=== PATIENT | female | born 1950 | race Caucasian/White ===

== ENCOUNTER → 2016-06-28 | Outpatient (CLI) | payer MEDICARE | LOC: WI 09:07 | PROVIDERS: ATTEND Family Medicine | DX: Z12.31 Encounter for screening mammogram for malignant neoplasm of breast (principal) | CPT/HCPCS: 77067; G0202 ==

== ENCOUNTER → 2016-10-26 | Outpatient (CLI) | payer MEDICARE | LOC: LAB 15:46 | PROVIDERS: ATTEND Emergency Medicine | DX: N39.0 Urinary tract infection, site not specified (principal); R30.0 Dysuria | CPT/HCPCS: 87086; 87088; 87186 ==

== ENCOUNTER 2017-02-04 09:41 | Emergency (ER) | payer MEDICARE ==
[2017-02-04] MEDS ORDERED: IPRATROPIUM/ALBUTEROL 0.5-2.5 MG/3 ML AMPUL NEB ONE (10:11)
--- NOTE | 2017-02-04 10:11 | ER Document Report ---
ED Medical Screen (RME) - General Chief Complaint: Breathing Difficulty Stated Complaint: DIFFICULTY BREATHING Time Seen by Provider: 02/04/17 10:03 Mode of Arrival: Wheelchair Information source: Patient Notes: 67-year-old female history of COPD presents with complaints of fevers chills body aches and shortness of breath. Patient noted to be slightly tachycardic upon arrival notes symptoms started this morning I have greeted and performed a rapid initial assessment of this patient. A comprehensive ED assessment and evaluation of the patient, analysis of test results and completion of the medical decision making process will be conducted by additional ED providers. PHYSICAL EXAMINATION: GENERAL: Well-appearing, well-nourished and in no acute distress. HEAD: Atraumatic, normocephalic. EYES: Pupils equal round extraocular movements intact, conjunctiva are normal. ENT: Nares patent NECK: Normal range of motion LUNGS: No respiratory distress Musculoskeletal: Normal range of motion NEUROLOGICAL: Normal speech, normal gait. PSYCH: Normal mood, normal affect. SKIN: Warm, Dry, normal turgor, no rashes or lesions noted. TRAVEL OUTSIDE OF THE [place] IN LAST 30 DAYS: No - Related Data Allergies/Adverse Reactions: diclofenac potassium [From Cataflam] Allergy (Verified 02/04/17 09:42) gabapentin [From Neurontin] Allergy (Verified 02/04/17 09:42) meloxicam [Meloxicam] Allergy (Verified 02/04/17 09:42) nitrofurantoin [From Macrobid] Allergy (Verified 02/04/17 09:42) nitrofurantoin macrocrystalline [From Macrobid] Allergy (Verified 02/04/17 09:42 ) Sulfa (Sulfonamide Antibiotics) Allergy (Verified 02/04/17 09:42) Home Medications: Current Home Medications Alprazolam [Xanax] 4 mg PO HSP 02/04/17 [History] Bisoprolol/Hydrochlorothiazide [Ziac 2.5-6.25 mg Tablet] 1 tab PO DAILY [History] Past Medical History - Social History Frequency of alcohol use: None Drug Abuse: Marijuana - Past Medical History Cardiac Medical History: Reports: Hx Hypercholesterolemia, Hx Hypertension Denies: Hx Coronary Artery Disease, Hx Heart Attack Pulmonary Medical History: Reports: Hx Asthma - MILD, Hx COPD Denies: Hx Bronchitis, Hx Pneumonia Neurological Medical History: Reports: Hx Migraine. Denies: Hx Cerebrovascular Accident, Hx Seizures Endocrine Medical History: Reports: Hx Diabetes Mellitus Type 1 Renal/ Medical History: Denies: Hx Peritoneal Dialysis GI Medical History: Reports: Hx Gastroesophageal Reflux Disease Musculoskeltal Medical History: Reports Hx Arthritis - GENERALIZED Psychiatric Medical History: Reports: Hx Anxiety Past Surgical History: Reports: Hx Cholecystectomy - Immunizations Hx Diphtheria, Pertussis, Tetanus Vaccination: - UNKNOWN History of Influenza Vaccine for 11/2016 - 04/2017 Season: Yes Influenza Administration Date for 11/2016 - 04/2017 Season: 01/10/17 Physical Exam - Vital signs Vitals: Temp Pulse Resp BP Pulse Ox 99.5 F 112 H 18 138/71 H 94 02/04/17 09:46 02/04/17 09:46 02/04/17 09:46 02/04/17 09:46 02/04/17 09:46 Course - Vital Signs Vital signs: Temp Pulse Resp BP Pulse Ox 99.5 F 112 H 18 138/71 H 94 02/04/17 09:46 02/04/17 09:46 02/04/17 09:46 02/04/17 09:46 02/04/17 09:46
--- NOTE | 2017-02-04 10:56 | EKG REPORT ---
SEVERITY:- OTHERWISE NORMAL ECG - SINUS TACHYCARDIA : Confirmed by: Courtney Rosas MD 04-Feb-2017 10:56:05
[2017-02-04 11:01] LABS: APPEARANCE,URINE CLEAR; BILIRUBIN,URINE NEGATIVE (NEGATIVE); GLUCOSE, URINE NEGATIVE (NEGATIVE); KETONES,URINE NEGATIVE (NEGATIVE); LEUKOCYTE ESTERASE,URINE NEGATIVE (NEGATIVE); NITRITE,URINE NEGATIVE (NEGATIVE); PROTEIN,URINE NEGATIVE (NEGATIVE); URINE SPECIFIC GRAVITY 1.002; UROBILINOGEN,URINE NEGATIVE mg/dL (<2.0)
--- NOTE | 2017-02-04 11:04 | ER Document Report ---
ED Respiratory Problem - General Chief Complaint: Breathing Difficulty Stated Complaint: DIFFICULTY BREATHING Time Seen by Provider: 02/04/17 10:03 Mode of Arrival: Wheelchair Information source: Patient Notes: 67-year-old female with a history of COPD has been fighting upper respiratory cough and mucus for almost a week. This morning she woke up with a fever that went up to 102.8. No chest pain or shortness of breath. No dysuria frequency or urgency. She complains of minimal right to midline abdominal pain. No nausea vomiting or diarrhea. No rash. She got a flu shot 3 weeks ago. TRAVEL OUTSIDE OF THE [place] IN LAST 30 DAYS: No - Related Data Allergies/Adverse Reactions: diclofenac potassium [From Cataflam] Allergy (Verified 02/04/17 09:42) gabapentin [From Neurontin] Allergy (Verified 02/04/17 09:42) meloxicam [Meloxicam] Allergy (Verified 02/04/17 09:42) nitrofurantoin [From Macrobid] Allergy (Verified 02/04/17 09:42) nitrofurantoin macrocrystalline [From Macrobid] Allergy (Verified 02/04/17 09:42 ) Sulfa (Sulfonamide Antibiotics) Allergy (Verified 02/04/17 09:42) Home Medications: Current Home Medications Alprazolam [Xanax] 4 mg PO HSP 02/04/17 [History] Bisoprolol/Hydrochlorothiazide [Ziac 2.5-6.25 mg Tablet] 1 tab PO DAILY [History] Past Medical History - General Information source: Patient - Social History Smoking Status: Former Smoker Frequency of alcohol use: None Drug Abuse: Marijuana Lives with: Spouse/Significant other Family History: Reviewed & Not Pertinent Patient has suicidal ideation: No Patient has homicidal ideation: No - Past Medical History Cardiac Medical History: Reports: Hx Hypercholesterolemia, Hx Hypertension Pulmonary Medical History: Reports: Hx Asthma - MILD, Hx COPD Neurological Medical History: Reports: Hx Migraine Endocrine Medical History: Reports: Hx Diabetes Mellitus Type 1 Renal/ Medical History: Denies: Hx Peritoneal Dialysis GI Medical History: Reports: Hx Gastroesophageal Reflux Disease Musculoskeltal Medical History: Reports Hx Arthritis - GENERALIZED Psychiatric Medical History: Reports: Hx Anxiety Past Surgical History: Reports: Hx Cholecystectomy - Immunizations Hx Diphtheria, Pertussis, Tetanus Vaccination: - UNKNOWN Review of Systems - Review of Systems Constitutional: See HPI EENT: See HPI Cardiovascular: No symptoms reported Respiratory: See HPI Gastrointestinal: No symptoms reported Genitourinary: No symptoms reported Female Genitourinary: No symptoms reported Musculoskeletal: No symptoms reported Skin: No symptoms reported Hematologic/Lymphatic: No symptoms reported Neurological/Psychological: No symptoms reported Physical Exam - Vital signs Vitals: Temp Pulse Resp BP Pulse Ox 99.5 F 112 H 18 138/71 H 94 02/04/17 09:46 02/04/17 09:46 02/04/17 09:46 02/04/17 09:46 02/04/17 09:46 Interpretation: Normal - General General appearance: Appears well, Alert In distress: None - HEENT Head: Normocephalic, Atraumatic Eyes: Normal Conjunctiva: Normal Pupils: PERRL Ears: Normal Nasal: Normal Mouth/Lips: Normal Mucous membranes: Normal Pharynx: Normal Neck: Supple. No: Lymphadenopathy - Respiratory Respiratory status: No respiratory distress Chest status: Nontender Breath sounds: Normal Chest palpation: Normal - Cardiovascular Rhythm: Regular Heart sounds: Normal auscultation Murmur: No - Abdominal Inspection: Normal Distension: No distension Bowel sounds: Normal Tenderness: Nontender. No: Tender Organomegaly: No organomegaly - Back Back: Normal, Nontender. No: CVA tenderness - Extremities General upper extremity: Normal inspection, Nontender, Normal color, Normal ROM , Normal temperature General lower extremity: Normal inspection, Nontender, Normal color, Normal ROM , Normal temperature, Normal weight bearing. No: Ina's sign - Neurological Neuro grossly intact: Yes Cognition: Normal Orientation: AAOx4 Evelyne Coma Scale Eye Opening: Spontaneous Evelyne Coma Scale Verbal: Oriented Evelyne Coma Scale Motor: Obeys Commands [place] Coma Scale Total: 15 Speech: Normal Motor strength normal: LUE, RUE, LLE, RLE Sensory: Normal - Psychological Associated symptoms: Normal affect, Normal mood - Skin Skin Temperature: Warm Skin Moisture: Dry Skin Color: Normal Skin irregularity: negative: Rash Course - Re-evaluation Re-evalutation: 02/04/17 11:18 3+ bacteria in the urine but only 1 WBC I added a urine culture which is pending. 02/04/17 12:28 chest xray negative, pt asking for xanax 2mg (that she usually takes) and food. 02/04/17 13:01 cbc finally redrawn and reported, white count 18.1 with 84% neutrophils 02/04/17 13:13 mild tender right lower quadrant, no guarding or rebound. 02/04/17 13:17 consult derik blancas get iv ct abd/pelvis 02/04/17 15:[address] there is a patchy right lower lobe airspace disease compatible with infectious or inflammatory pneumonitis I will treat her with antibiotics have her follow-up with Dr. Mcnulty or return to the emergency room if worse. She is aware of the renal cyst it was there in the past. - Vital Signs Vital signs: Temp Pulse Resp BP Pulse Ox 97.4 F 81 18 125/66 99 02/04/17 16:46 02/04/17 16:46 02/04/17 16:46 02/04/17 16:46 02/04/17 16:46 - Laboratory Result Diagrams: 02/04/17 12:25 02/04/17 10:55 Laboratory results interpreted by me: 02/04/17 02/04/17 10:55 12:25 WBC 18.8 H Seg Neutrophils % 85.9 H Lymphocytes % 8.0 L Absolute Neutrophils 16.1 H Est GFR ( Amer) 54 L Est GFR (Non-Af Amer) 45 L Glucose 115 H Creatine Kinase 171 H Discharge - Discharge Clinical Impression: Right lower lobe pneumonia, Fever, ASB (asymptomatic bacteriuria) Condition: Good Disposition: HOME, SELF-CARE Instructions: Abdominal Pain ([facility]), Acetaminophen, Levofloxacin, Pneumonia ([facility] ) Additional Instructions: to er if worse Finish the antibiotics rest see dr mcnulty this week for follow up Prescriptions: Levofloxacin 750 mg PO DAILY #5 tablet Referrals: GEM MCNULTY MD [HONORARY] - 02/06/17
--- NOTE | 2017-02-04 11:06 | RADIOLOGY REPORT (SQ) ---
EXAM DESCRIPTION: CHEST SINGLE VIEW COMPLETED DATE/TIME: 02/04/2017 10:56 am REASON FOR STUDY: dyspnea COMPARISON: 05/16/2015 EXAM PARAMETERS: NUMBER OF VIEWS: One view. TECHNIQUE: Single frontal radiographic view of the chest acquired. RADIATION DOSE: NA LIMITATIONS: None. FINDINGS: LUNGS AND PLEURA: No opacities, masses or pneumothorax. No pleural effusion. MEDIASTINUM AND HILAR STRUCTURES: No masses. Contour normal. HEART AND VASCULAR STRUCTURES: Heart normal in size. Normal vasculature. BONES: No acute findings. HARDWARE: None in the chest. OTHER: No other significant finding. IMPRESSION: NO ACUTE RADIOGRAPHIC FINDING IN THE CHEST. NO SIGNIFICANT CHANGE FROM PRIOR STUDY. TECHNICAL DOCUMENTATION: JOB ID: [id number] [employer]- All Rights Reserved
[2017-02-04 11:22] LABS: ALANINE AMINOTRANSFERASE 38 U/L (9-52); ALBUMIN 4.3 g/dL (3.5-5.0); ALKALINE PHOSPHATASE 96 U/L (38-126); ANION GAP 12 (5-19); ASPARTATE AMINO TRANSFERASE 35 U/L (14-36); BILIRUBIN,DIRECT 0.3 mg/dL (0.0-0.4); BILIRUBIN,TOTAL 0.7 mg/dL (0.2-1.3); BLOOD UREA NITROGEN 20 mg/dL (7-20); CALCIUM 9.7 mg/dL (8.4-10.2); CARBON DIOXIDE 28 mmol/L (22-30); CHLORIDE 101 mmol/L (98-107); CREATINE KINASE 171 U/L (30-135); CREATININE RESULT 1.21 mg/dL (0.52-1.25); GLUCOSE 115 mg/dL (75-110); POTASSIUM 4.6 mmol/L (3.6-5.0); SODIUM 141.3 mmol/L (137-145); TOTAL PROTEIN 7.8 g/dL (6.3-8.2)
[2017-02-04 11:34] LABS: TROPONIN I 0.015 ng/mL
[2017-02-04] MEDS ORDERED: ALPRAZOLAM 0.5 MG TABLET PO ONE (12:25)
[2017-02-04 12:45] LABS: ABSOLUTE BASOPHILS # (AUTO) 0.1 10^3/uL (0.0-0.2); ABSOLUTE LYMPHOCYTES (AUTO) 1.5 10^3/uL (0.5-4.7); ABSOLUTE MONOCYTES (AUTO) 1.1 10^3/uL (0.1-1.4); ABSOLUTE NEUT (AUTO) 16.1 10^3/uL (1.7-8.2); BASOPHILS % (AUTO) 0.3 % (0-2); EOSINOPHILS % (AUTO) 0.1 % (0-6); HEMATOCRIT 39.2 % (36.0-47.0); HEMOGLOBIN 13.2 g/dL (12.0-15.5); HGB HCT DIFFERENCE 0.4; MEAN CORPUSCULAR HEMOGLOBIN 30.4 pg (27.0-33.4); MEAN CORPUSCULAR HGB CONC 33.6 g/dL (32.0-36.0); MEAN CORPUSCULAR VOLUME 90 fl (80-97); MONOCYTES % (AUTO) 5.7 % (3-13); RED BLOOD COUNT 4.34 10^6/uL (3.72-5.28); RED CELL DISTRIBUTION WIDTH 13.7 % (11.5-14.0); SEGMENTED NEUTROPHILS % (AUTO) 85.9 % (42-78); WHITE BLOOD COUNT 18.8 10^3/uL (4.0-10.5)
--- NOTE | 2017-02-04 15:08 | RADIOLOGY REPORT (SQ) ---
EXAM DESCRIPTION: CT ABD/PELVIS WITH IV ONLY COMPLETED DATE/TIME: 02/04/2017 2:53 pm REASON FOR STUDY: fever, right middle quadrant tender COMPARISON: None. TECHNIQUE: CT scan of the abdomen and pelvis performed using helical scanning technique with dynamic intravenous contrast injection. No oral contrast. Images reviewed with lung, soft tissue, and bone windows. Reconstructed coronal and sagittal MPR images reviewed. Delayed images for evaluation of the urinary system also acquired. All images stored on PACS. All CT scanners at this facility use dose modulation, iterative reconstruction, and/or weight based d osing when appropriate to reduce radiation dose to as low as reasonably achievable (ALARA). [facility]: Dose Right [facility]: CareDose [facility]: Dose Right [facility]: Teradose 4D [facility]: skyrockit CONTRAST TYPE AND DOSE: contrast/concentration: Isovue 370.00 mg/ml; Total Contrast Delivered: 92.0 ml; Total Saline Delivered: 65.1 ml RENAL FUNCTION: Creatinine measures 1.21 RADIATION DOSE: CT Rad equipment meets quality standard of care and radiation dose reduction techniq ues were employed. CTDIvol: 11.3 - 14.6 mGy. DLP: 1378 mGy-cm.. LIMITATIONS: None. FINDINGS: LOWER CHEST: Patchy right lower lobe airspace disease. LIVER: Normal size. No masses. Mild intra and extrahepatic biliary ductal dilatation with the common bile duct measuring 10 mm. SPLEEN: Normal size. No focal lesions. PANCREAS: No masses. No significant calcifications. No adjacent inflammation or peripancreatic fluid collections. Pancreatic duct not dilated. GALLBLADDER: Surgically absent. ADRENAL GLANDS: No significant masses or asymmetry. RIGHT KIDNEY AND URETER: 2.2 cm renal sinus cyst. No solid masses. No significant calcifications. No hydronephrosis or hydroureter. LEFT KIDNEY AND URETER: No solid masses. No significant calcifications. No hydronephrosis or hydr oureter. AORTA AND VESSELS: Atherosclerotic calcifications per No aneurysm. No dissection. Renal arteries, SM A, celiac without stenosis. RETROPERITONEUM: No retroperitoneal adenopathy, hemorrhage or masses. BOWEL AND PERITONEAL CAVITY: No masses or inflammatory changes. No free fluid or peritoneal masses. APPENDIX: Normal. PELVIS: No mass. No free fluid. Normal bladder. ABDOMINAL WALL: No masses. No hernias. BONES: Degenerative change without fracture or suspicious osseous lesion. OTHER: No other significant finding. IMPRESSION: PATCHY RIGHT LOWER LOBE AIRSPACE DISEASE COMPATIBLE WITH INFECTIOUS OR INFLAMMATORY PNEU MONITIS. NO ACUTE INFLAMMATORY CHANGE IDENTIFIED WITHIN THE ABDOMEN OR PELVIS. THERE IS MILD BILIARY DUCT DILATATION PRESUMABLY WITHIN NORMAL LIMITS FOR POST CHOLECYSTECTOMY STATUS . CORRELATE WITH BILIARY ENZYMES. ADDITIONAL CHRONIC CHANGES ABOVE. TECHNICAL DOCUMENTATION: JOB ID: [id number] Quality ID # [id number]: Final reports with documentation of one or more dose reduction techniques (e.g., Au tomated exposure control, adjustment of the mA and/or kV according to patient size, use of iterative reconstruction technique) 2010 [employer]- All Rights Reserved
[2017-02-04] MEDS ORDERED: LEVOFLOXACIN 750 MG TABLET PO ONE (15:46)
[2017-02-04 16:48] VITALS: BP 125/66
== END 2017-02-04 16:49 | disposition home or self-care (01) ==
LOC: ER 09:41
DX: J44.0 Chronic obstructive pulmonary disease with (acute) lower respiratory infection (principal); J18.9 Pneumonia, unspecified organism; R82.71 Bacteriuria; R05 Cough; R50.9 Fever, unspecified; R10.9 Unspecified abdominal pain; I10 Essential (primary) hypertension; E10.9 Type 1 diabetes mellitus without complications; Z88.6 Allergy status to analgesic agent; Z88.1 Allergy status to other antibiotic agents; Z88.2 Allergy status to sulfonamides; Z88.8 Allergy status to other drugs, medicaments and biological substances; Z87.891 Personal history of nicotine dependence; Z90.49 Acquired absence of other specified parts of digestive tract
CPT/HCPCS: 93005; 94640; 99285; 36415; 87040; 87086; 82553; 82550; 85025; 80053; 81001; 84484; 83880; 71010; 74177; 93010; A9270 ×3; J7620

== ENCOUNTER 2017-02-28 05:33 | Day surgery (SDC) | payer MEDICARE ==
[2017-02-26 12:20] LABS: APPEARANCE,URINE CLEAR; BILIRUBIN,URINE NEGATIVE (NEGATIVE); COLOR,URINE COLORLESS; GLUCOSE, URINE NEGATIVE (NEGATIVE); KETONES,URINE NEGATIVE (NEGATIVE); LEUKOCYTE ESTERASE,URINE NEGATIVE (NEGATIVE); NITRITE,URINE NEGATIVE (NEGATIVE); PROTEIN,URINE NEGATIVE (NEGATIVE); URINE SPECIFIC GRAVITY 1.002; UROBILINOGEN,URINE NEGATIVE mg/dL (<2.0)
[2017-02-26 12:53] LABS: HEMATOCRIT 39.1 % (36.0-47.0); HEMOGLOBIN 13.1 g/dL (12.0-15.5); MEAN CORPUSCULAR HEMOGLOBIN 30.4 pg (27.0-33.4); MEAN CORPUSCULAR HGB CONC 33.5 g/dL (32.0-36.0); MEAN CORPUSCULAR VOLUME 91 fl (80-97); PLATELET COUNT 329 10^3/uL (150-450); RED CELL DISTRIBUTION WIDTH 13.7 % (11.5-14.0); WHITE BLOOD COUNT 11.1 10^3/uL (4.0-10.5)
[2017-02-26 13:17] LABS: ANION GAP 9 (5-19); BLOOD UREA NITROGEN 15 mg/dL (7-20); CALCIUM 9.9 mg/dL (8.4-10.2); CARBON DIOXIDE 30 mmol/L (22-30); CHLORIDE 101 mmol/L (98-107); GLUCOSE 96 mg/dL (75-110); POTASSIUM 4.8 mmol/L (3.6-5.0); SODIUM 140.1 mmol/L (137-145)
--- NOTE | 2017-02-26 13:58 | RADIOLOGY REPORT (SQ) ---
EXAM DESCRIPTION: CHEST PA/LATERAL COMPLETED DATE/TIME: 02/26/2017 12:34 pm REASON FOR STUDY: PRE OP COMPARISON: 02/04/2017, 05/16/2015 chest films EXAM PARAMETERS: NUMBER OF VIEWS: two views TECHNIQUE: Digital Frontal and Lateral radiographic views of the chest acquired. RADIATION DOSE: NA LIMITATIONS: none FINDINGS: LUNGS AND PLEURA: No opacities, masses or pneumothorax. No pleural effusion. MEDIASTINUM AND HILAR STRUCTURES: No masses or contour abnormalities. HEART AND VASCULAR STRUCTURES: Heart normal size. No evidence for failure. BONES: No acute findings. HARDWARE: Clips right upper quadrant post cholecystectomy OTHER: No other significant finding. IMPRESSION: NO SIGNIFICANT RADIOGRAPHIC FINDING IN THE CHEST. TECHNICAL DOCUMENTATION: JOB ID: [id number] [employer]- All Rights Reserved
--- NOTE | 2017-02-26 23:15 | EKG REPORT ---
SEVERITY:- NORMAL ECG - SINUS RHYTHM : Confirmed by: Olya Zamora 26-Feb-2017 23:14:51
[~2017-02-28 05:33] MED LIST: CEFAZOLIN 1 GM/D5W RTU 1 GM/50 ML RTUPB IV PRN; LACTATED RINGERS 1000 ML IV PRN; LIDOCAINE 0.5% INJ-PF (5 MG/ML) 50 ML SDV SUBCUT PRN
[2017-02-28] MEDS ORDERED: ALBUTEROL SULFATE 0.083% NEB 2.5 MG/3 ML AMPUL NEB ONE ×2 (06:20→07:00)
[2017-02-28] MEDS ORDERED: FENTANYL CITRATE INJ/PF 100 MCG/2 ML AMPUL ONE (06:42)
[2017-02-28] MEDS ORDERED: MIDAZOLAM 2 MG/2 ML INJ ONE ×2 (06:42→06:43)
[2017-02-28] MEDS ORDERED: PROPOFOL INJ 200 MG/20 ML VIAL IV ONE (06:43)
[2017-02-28] MEDS ORDERED: LIDOCAINE 1%/EPINEPHRINE INJ 20 ML VIAL ONE (07:03)
[2017-02-28] MEDS ORDERED: KETAMINE HCL INJ 500 MG/10 ML VIAL ONE (07:31)
[2017-02-28] MEDS ORDERED: PROMETHAZINE HCL INJ 25 MG/1 ML VIAL IV PRN (07:54)
[2017-02-28] MEDS ORDERED: DIPHENHYDRAMINE HCL 50 MG/ML VIAL IV PRN (07:54)
[2017-02-28] MEDS ORDERED: FENTANYL CITRATE INJ/PF 100 MCG/2 ML AMPUL IV PRN ×3 (07:54)
--- NOTE | 2017-02-28 09:34 | OPERATIVE REPORT E ---
Operative Report NAME: SIMOEN WALLIS : 1950 AGE: 67Y DATE OF SURGERY: 02/28/2017 ROOM: PREOPERATIVE DIAGNOSIS: MODERATE DYSPLASIA/HIGH-GRADE ALYSSA. POSTOPERATIVE DIAGNOSIS: MODERATE DYSPLASIA/HIGH-GRADE ALYSSA. OPERATION: 1. Cold knife conization. 2. Endocervical curettage. 3. Endometrial biopsy. SURGEON: ELMER BORDEN M.D. COMPLICATIONS: None. ANESTHESIA: LMAC, paracervical block of 1% lidocaine with epinephrine. FINDINGS: That of a normal cervix and pelvis on EUA. Bladder was left undrained. INDICATIONS FOR PROCEDURE: Patient had abnormal Pap smear as an outpatient. High grade lesions requiring a cone. Due to multiple medical morbidities, patient has been brought to the hospital for the procedure versus outpatient. Usual risks of bleeding, infection, anesthesia, damage to organs or tissue were discussed and the patient understood. DESCRIPTION OF PROCEDURE: The patient was taken to the operating room and placed in the modified lithotomy position. After adequate anesthesia ascertained, prepped in the usual manner for a cold knife conization. Paracervical block was placed. EUA performed. Surgeon-led time out performed. The conization ensued inclusive of the lower portion of the cervix and extended into the cervix for approximately a centimeter. Endocervical biopsies were performed thereafter and endometrial biopsy was performed thereafter. Uterus sounded to approximately 4 cm. At completion of procedure, the bed of the cone was cauterized and hemostasis was noted. Patient was awakened and taken to recovery in stable condition. DICTATING PHYSICIAN: ELMER BORDEN M.D. [id number] Y#: [id number] ID: [id number] JOB#: [id number] ACCT: [id number] cc:ELMER BORDEN M.D. >
[2017-02-28 10:22] VITALS: BP 129/78
[2017-02-28] MEDS ORDERED: LIDOCAINE 2% INJ-PF (20 MG/ML) 2 ML AMPUL ONE (10:31)
== END 2017-02-28 09:55 | disposition home or self-care (01) ==
LOC: OROUT 05:33
PROVIDERS: ATTEND Specialist
PROC: 0UBC7ZX Excision of Cervix, Via Natural or Artificial Opening, Diagnostic (ICD-10-PCS; principal; 2017-02-28 07:15)
DX: N87.1 Moderate cervical dysplasia (principal); N88.8 Other specified noninflammatory disorders of cervix uteri; N72 Inflammatory disease of cervix uteri; I10 Essential (primary) hypertension; E11.9 Type 2 diabetes mellitus without complications; M19.90 Unspecified osteoarthritis, unspecified site; J44.9 Chronic obstructive pulmonary disease, unspecified; M06.9 Rheumatoid arthritis, unspecified; M81.0 Age-related osteoporosis without current pathological fracture; M85.80 Other specified disorders of bone density and structure, unspecified site; Z88.3 Allergy status to other anti-infective agents; Z88.8 Allergy status to other drugs, medicaments and biological substances
CPT/HCPCS: 93005; 86900; 86901; 36415 ×2; 86850; 82962; 84132; 85027; 80048; 81001; 88305 ×2; 88307 ×2; 71046; 93010; 57520; J2250; J0690; J3010; J3490 ×3; J2704; A9270; 940

== ENCOUNTER → 2017-04-03 | Outpatient (CLI) | payer MEDICARE ==
--- NOTE | 2017-04-03 12:46 | RADIOLOGY REPORT (SQ) ---
EXAM DESCRIPTION: HIP RIGHT AP/LATERAL COMPLETED DATE/TIME: 04/03/2017 10:28 am REASON FOR STUDY: M25.551 PAIN IN RIGHT HIP R10.2 PELVIC AND PERINEAL PAIN M25.551 PAIN IN RIGHT HI P R10.2 PELVIC AND PERINEAL PAIN COMPARISON: None. NUMBER OF VIEWS: Two views. TECHNIQUE: AP pelvis and additional frog-leg view of the right hip. LIMITATIONS: None. FINDINGS: MINERALIZATION: Normal. RIGHT HIP: Mild to moderate degenerative narrowing of the right hip with associated degenerative scle rotic change. Femoral head normal in contour. LEFT HIP: No fracture or dislocation. No worrisome bone lesions. PUBIS AND ISCHIUM: No fracture. PELVIS: No fracture. SACRUM: No fracture or dislocation. No worrisome bone lesions. LOWER LUMBAR SPINE: Degenerative changes lower lumbar spine SOFT TISSUES: No findings. OTHER: No other significant finding. IMPRESSION: Mild to moderate osteoarthritic change involving the right hip. See above discussion. TECHNICAL DOCUMENTATION: JOB ID: [id number] [employer]- All Rights Reserved
== END ==
LOC: RAD 09:55
PROVIDERS: ATTEND Family Medicine
DX: M25.551 Pain in right hip (principal); R10.2 Pelvic and perineal pain

== ENCOUNTER → 2017-06-30 | Outpatient (CLI) | payer MEDICARE ==
--- NOTE | 2017-07-01 12:32 | WOMENS IMAGING REPORT ---
EXAM DESCRIPTION: 3D SCREENING MAMMO BILAT COMPLETED DATE/TIME: 06/30/2017 9:42 am REASON FOR STUDY: SCREENING MAMMO Z12.31 ENCNTR SCREEN MAMMOGRAM FOR MALIGNANT NEOPLASM OF CARIE COMPARISON: Multiple since 2008 TECHNIQUE: Standard craniocaudal and mediolateral oblique views of each breast recorded using digita l acquisition and breast tomosynthesis. LIMITATIONS: None. FINDINGS: No masses, calcifications or architectural distortion. No areas of suspicion. Read with the assistance of CAD. .[facility] - R2 Cenova Version 1.3 .[facility] - R2 Cenova Version 1.3 .[facility] - R2 Cenova Version 2.4 .[facility] - R2 Cenova Version 2.4 .[facility] - R2 [employer] Version 9.2 IMPRESSION: NORMAL MAMMOGRAM. BIRADS 1. BREAST DENSITY: b. There are scattered areas of fibroglandular density. BIRAD: 1 NEGATIVE RECOMMENDATION: ROUTINE SCREENING Please continue yearly bilateral screening mammography/tomosynthesis in June 2018. COMMENT: The patient has been notified of the results by letter per SA requirements. Additional no tification policies are in place for contacting patient with suspicious or incomplete findings. Quality ID #[id number]: The [employer] recommends an annual screening mammogram for women aged 40 years or over. This facility utilizes a reminder system to ensure that all patients receive reminder letters, and/or direct phone calls for appointments. This includes reminders for routine scr eening mammograms, diagnostic mammograms, or other Breast Imaging Interventions when appropriate. Th is patient will be placed in the appropriate reminder system. The [employer] (ACR) has developed recommendations for screening MRI of the breast s in certain patient populations, to be used in conjunction with mammography. Breast MRI surveillanc e may be appropriate for women with more than 20% lifetime risk of developing breast cancer as deter mined by genetic testing, significant family history of the disease, or history of mantle radiation f or Hodgkins Disease. ACR Practice Guidelines 2008. DBT Technology DBT is a type of tomographic mammography. With conventional mammography, overlapping breast tissue ma y make lesions difficult to detect, even with good compression. DBT uses an x-ray tube that rotates a round the breast, taking images at different angles. These images are then combined to create thin sl ices of the breast that the radiologist can view as a 3D reconstruction. The [employer] unit can perform full-field digital mammograms (2D imaging); or DBT (3D imaging); or both, in a combination mode that quickly performs both the mammogram and the tomosynthesis scan while the breast is still compressed. PQRS 6045F: Fluoroscopic imaging is not utilized for breast tomosynthesis. TECHNICAL DOCUMENTATION: FINDING NUMBER: (1) ASSESSMENT: (1) JOB ID: [id number] [employer]- All Rights Reserved Reading location - IP/workstation name: [facility]
== END ==
LOC: WI 09:27
PROVIDERS: ATTEND Family Medicine
DX: Z12.31 Encounter for screening mammogram for malignant neoplasm of breast (principal)
CPT/HCPCS: 77063; 77067

== ENCOUNTER → 2018-02-12 | Outpatient (CLI) | payer MEDICARE ==
--- NOTE | 2018-02-12 12:54 | RADIOLOGY REPORT (SQ) ---
EXAM DESCRIPTION: HIP RIGHT AP/LATERAL COMPLETED DATE/TIME: 02/12/2018 11:55 am REASON FOR STUDY: LUMBAGO WITH SCIATICA, RIGHT SIDE M54.41 LUMBAGO WITH SCIATICA, RIGHT SIDE M25.55 1 PAIN IN RIGHT HIP COMPARISON: None. NUMBER OF VIEWS: Two views. TECHNIQUE: AP pelvis and additional frog-leg view of the right hip. LIMITATIONS: None. FINDINGS: MINERALIZATION: Normal. RIGHT HIP: No fracture or dislocation. Narrowing of the joint space. Marginal osteophytes on the fe moral head. LEFT HIP: No fracture or dislocation. No worrisome bone lesions. PUBIS AND ISCHIUM: No fracture. PELVIS: No fracture. SACRUM: No fracture or dislocation. No worrisome bone lesions. LOWER LUMBAR SPINE: No fracture or dislocation. No worrisome bone lesions. No significant disc disea se. SOFT TISSUES: No findings. OTHER: No other significant finding. IMPRESSION: Degenerative joint disease in the right hip. No acute findings. TECHNICAL DOCUMENTATION: JOB ID: [id number] [email or web address]- All Rights Reserved Reading location - IP/workstation name: [email or web address]
--- NOTE | 2018-02-12 13:28 | RADIOLOGY REPORT (SQ) ---
EXAM DESCRIPTION: L SPINE WHOLE COMPLETED DATE/TIME: 02/12/2018 11:55 am REASON FOR STUDY: LUMBAGO WITH SCIATICA, RIGHT SIDE M54.41 LUMBAGO WITH SCIATICA, RIGHT SIDE M25.55 1 PAIN IN RIGHT HIP COMPARISON: None. NUMBER OF VIEWS: Five views including obliques. TECHNIQUE: AP, lateral, oblique, and sacral radiographic images acquired of the lumbar spine. LIMITATIONS: None. FINDINGS: MINERALIZATION: Normal. SEGMENTATION: Normal. No transitional anatomy. ALIGNMENT: Normal. VERTEBRAE: Maintained height. No fracture or worrisome bone lesion. DISCS: Preserved height. No significant osteophytes or end plate irregularity. POSTERIOR ELEMENTS: Pedicles and facets are intact. No pars defect or posterior arch defects. HARDWARE: None in the spine. PARASPINAL SOFT TISSUES: Normal. PELVIS: Intact as visualized. No fractures or worrisome bone lesions. SI joints intact. OTHER: No other significant finding. IMPRESSION: NORMAL 5 VIEW LUMBAR SPINE. TECHNICAL DOCUMENTATION: JOB ID: [id number] [employer]- All Rights Reserved Reading location - IP/workstation name: [email or web address]
== END ==
LOC: RAD 11:20
PROVIDERS: ATTEND Family Medicine
DX: M54.41 Lumbago with sciatica, right side (principal); M25.551 Pain in right hip
CPT/HCPCS: 72110

== ENCOUNTER 2018-03-09 11:07 | Emergency (ER) | payer MEDICARE ==
[2018-03-09 11:33] VITALS: BP 150/69
--- NOTE | 2018-03-09 13:52 | ER Document Report ---
HPI - HPI Patient complains to provider of: right lower back, leg pain Time Seen by Provider: 03/09/18 13:47 Pain Level: 5 Context: Patient is a 68-year-old female presents to the emergency department for right paraspinal back pain radiating into her right buttocks and down her right lower extremity. Patient states she was to her primary care doctor Dr. Cody on 02/12/2018 for this pain. States at that time he sent her for x-rays and told her to take [id number] Motrin. Patient states she was at an urgent care today for her Right side lower back pain radiating down her right lower extremity and they told her she needed an MRI and had to go to the emergency room. Patient is requesting an MRI at this time. Patient denies any urinary retention, loss of bowel or bladder, numbness or tingling in any extremity. Past medical history: Hypertension, GERD, COPD, diabetes, spinal stenosis Medications: Patient is unsure Allergies: Gabapentin, meloxicam, Bactrim - REPRODUCTIVE Reproductive: DENIES: : - DERM Skin Color: Normal Past Medical History - General Information source: Patient - Social History Smoking Status: Former Smoker Chew tobacco use (# tins/day): No Frequency of alcohol use: None Drug Abuse: None Family History: Reviewed & Not Pertinent Patient has suicidal ideation: No Patient has homicidal ideation: No - Past Medical History Cardiac Medical History: Reports: Hx Atrial Fibrillation, Hx Hypercholesterolemia, Hx Hypertension Denies: Hx Coronary Artery Disease, Hx Heart Attack Pulmonary Medical History: Reports: Hx Asthma - MILD, Hx COPD, Hx Pneumonia - RECENTLY ON 02/04/17 Denies: Hx Bronchitis Neurological Medical History: Reports: Hx Migraine. Denies: Hx Cerebrovascular Accident, Hx Seizures Endocrine Medical History: Reports: Hx Diabetes Mellitus Type 1 Renal/ Medical History: Denies: Hx Peritoneal Dialysis GI Medical History: Reports: Hx Gastroesophageal Reflux Disease Musculoskeletal Medical History: Reports Hx Arthritis - GENERALIZED Psychiatric Medical History: Reports: Hx Anxiety Past Surgical History: Reports: Hx Cholecystectomy - Immunizations Hx Diphtheria, Pertussis, Tetanus Vaccination: - UNKNOWN Hx Pneumococcal Vaccination: 02/10/17 Vertical Provider Document - CONSTITUTIONAL Agree With Documented VS: Yes Notes: GENERAL: Alert, interacts well. No acute distress. HEAD: Normocephalic, atraumatic. EYES: Pupils equal, round, and reactive to light. Extraocular movements intact. ENT: Oral mucosa moist, tongue midline. NECK: Full range of motion. Supple. Trachea midline. LUNGS: Clear to auscultation bilaterally, no wheezes, rales, or rhonchi. No respiratory distress. HEART: Regular rate and rhythm. No murmur ABDOMEN: Soft, non-tender. Non-distended. Bowel sounds present in all 4 quadrants. EXTREMITIES: Moves all 4 extremities spontaneously. No edema, normal radial and dorsalis pedis pulses bilaterally. No cyanosis. 5 out of 5 strength all 4 extremities. BACK: no cervical, thoracic, lumbar midline tenderness. No saddle anesthesia, normal distal neurovascular exam. Right paraspinal lumbar back pain radiating into right buttocks NEUROLOGICAL: Alert and oriented x3. Normal speech. cranial nerves II through XII grossly intact PSYCH: Normal affect, normal mood. SKIN: Warm, dry, normal turgor. No rashes or lesions noted. - INFECTION CONTROL TRAVEL OUTSIDE OF THE [place] IN LAST 30 DAYS: No Course - Re-evaluation Re-evalutation: 03/09/18 13:53 In discussing case with Dr. Simmons he recommends Gabapentin for the pts pain. The Pt. stated she was allergic to it, so Naproxen will be tried. Discussed at length with pt. she needs to follow up with PCP for an out pt. MRI and continued pain management for her right-sided back pain and sciatic nerve pain. Discussed that in the emergency room we do not do routine MRIs. Due to her age, allergies and past medical history multiple treatment modalities are unavailable. Patient voices understanding, stable for discharge. 03/09/18 13:59 The patient presents with low back pain without signs of spinal cord compression, cauda equina syndrome, infection, aneurysm, or other serious etiology. The patient is neurologically intact. Given the extremely low risk of these diagnoses further testing and evaluation for these possibilities does not appear to be indicated at this time. The patient has been instructed to return if the symptoms worsen or change in any way. - Vital Signs Vital signs: Temp Pulse Resp BP Pulse Ox 97.9 F 92 20 150/69 H 96 03/09/18 11:31 03/09/18 11:31 03/09/18 11:31 03/09/18 11:31 03/09/18 11:31 Discharge - Discharge Clinical Impression: Low back pain Qualifiers: Chronicity: chronic Back pain laterality: right Sciatica presence: with sciatica Sciatica laterality: sciatica of right side Qualified Code(s): M54.41 - Lumbago with sciatica, right side Condition: Stable Disposition: HOME, SELF-CARE Instructions: Chronic Back Pain ([facility]), Low Back Pain ([facility]), Sciatica ([facility]) Additional Instructions: As we discussed you have been seen and treated in the emergency department for your low back pain and sciatic nerve pain. Please make sure you continue following up with your primary care provider for an MRI. Please return to the emergency room should you have any other concerning symptoms. Referrals: GEM CODY MD [Primary Care Provider] - Follow up as needed
[2018-03-09] MEDS ORDERED: NAPROXEN 250 MG TABLET PO ONE (13:54)
== END 2018-03-09 14:57 | disposition home or self-care (01) ==
LOC: ER 11:07
DX: G89.29 Other chronic pain (principal); M54.41 Lumbago with sciatica, right side; I10 Essential (primary) hypertension; E10.9 Type 1 diabetes mellitus without complications; J44.9 Chronic obstructive pulmonary disease, unspecified; Z88.6 Allergy status to analgesic agent; Z88.1 Allergy status to other antibiotic agents; Z88.8 Allergy status to other drugs, medicaments and biological substances; Z87.891 Personal history of nicotine dependence
CPT/HCPCS: 99283; A9270

== ENCOUNTER → 2018-03-12 | Outpatient (CLI) | payer MEDICARE ==
--- NOTE | 2018-03-12 12:27 | RADIOLOGY REPORT (SQ) ---
EXAM DESCRIPTION: MRI LUMBAR SPINE WITHOUT COMPLETED DATE/TIME: 03/12/2018 11:21 am REASON FOR STUDY: M54.41 LUMBAGO WITH SCIATICA, RIGHT SIDE M54.41 LUMBAGO WITH SCIATICA, RIGHT SIDE COMPARISON: Lumbar spine plain films 02/13/2008 TECHNIQUE: Sagittal and Axial imaging includes T1, T2, STIR and gradient echo sequences. Coronal T2/ HASTE imaging. LIMITATIONS: None. FINDINGS: VISUALIZED UPPER ABDOMEN: Limited evaluation. No acute or suspicious findings suggested. SEGMENTATION: No transitional anatomy. The lowest well-developed disc space is labeled L5-S1. ALIGNMENT: Anatomic. VERTEBRAE: Intact. BONE MARROW: Normal. No marrow replacement or reactive changes. DISC SIGNAL: Diffuse decreased T2 weighted intervertebral disc signal. POSTERIOR ELEMENTS: Generally intact. No pars defect evident. HARDWARE: None in the spine. CORD AND CONUS: Normal in size and signal intensity. Conus at the L1 level. SOFT TISSUES: No aortic aneurysm seen. No bulky retroperitoneal adenopathy or mass. No paraspinal mas s or fluid. T11-12: Mild bilateral facet arthropathy. No central or foraminal stenosis T12-L1: Mild bilateral facet arthropathy. No central or foraminal stenosis L1-L2: Mild bilateral facet arthropathy. No central or foraminal stenosis L2-L3: Moderate bilateral facet arthropathy. Mild posterior disc bulging. Borderline central canal narrowing. Mild bilateral inferior foraminal narrowing without exiting L2 nerve root impingement. L3-L4: Broad diffuse posterior disc bulging is present with a small central annular tear. This findi ng along with bulky bilateral facet arthropathy causes mild central canal stenosis best shown on axia l T2 image 18. There is moderate bilateral inferior foraminal narrowing without exiting L3 nerve maegan t impingement. L4-L5: Broad diffuse posterior disc bulging and bulky bilateral facet and ligament hypertrophy cause moderate central canal narrowing, best shown on axial T2 image 24. Partial effacement of the CSF floyd und the lumbar nerve roots. Mild bilateral inferior foraminal narrowing without exiting L4 nerve maegan t impingement. L5-S1: Bulky bilateral facet arthropathy at L5-S1. No central stenosis or foraminal narrowing. SACRUM: Visualized upper sacrum intact. OTHER: No other significant findings. IMPRESSION: Central canal stenosis most pronounced at L4-5 TECHNICAL DOCUMENTATION: JOB ID: [id number]- All Rights Reserved Reading location - IP/workstation name: [email or web address]
== END ==
LOC: RAD 10:30
PROVIDERS: ATTEND Family Medicine
DX: M54.41 Lumbago with sciatica, right side (principal); M48.061 Spinal stenosis, lumbar region without neurogenic claudication
CPT/HCPCS: 72148

== ENCOUNTER 2018-04-29 20:19 | Emergency (ER) | payer MEDICARE ==
--- NOTE | 2018-04-29 22:08 | ER Document Report ---
ED General - General Chief Complaint: High Blood Pressure Stated Complaint: BLOOD PRESSURE Time Seen by Provider: 04/29/18 21:55 Primary Care Provider: GEM BAEZ MD [Primary Care Provider] - Follow up in 3-5 days Notes: Patient is a 68-year-old female that comes to the emergency department for chief complaint of elevated blood pressure readings. She states that she was seen in the office this morning by Dr. Baez, she states that she had her blood pressure medication of Ziac changed from 1/2 to 1 tablet (previously had been dropped down to half because of good pressures). She states she was given the w hole 1 in the office, she states that she went home and she did not feel better, she states she has been having some headaches today and intermittently feels like her vision is blurred (although she states that she believes this is because of her glasses, she has had this problem frequently). She denies chest pain, dizziness, focal numbness or weakness, visual loss. She denies any other complaints. She states she is worried about her kidney functioning. She is also on amlodipine. She states she has been stressed at home because of a 2-year-old, she does take clonazepam as needed for anxiety. at bedside. Is not suicidal or homicidal. TRAVEL OUTSIDE OF THE [place] IN LAST 30 DAYS: No - Related Data Allergies/Adverse Reactions: diclofenac potassium [From Cataflam] Allergy (Verified 03/09/18 11:13) gabapentin [From Neurontin] Allergy (Verified 03/09/18 11:13) meloxicam [Meloxicam] Allergy (Verified 03/09/18 11:13) nitrofurantoin [From Macrobid] Allergy (Verified 03/09/18 11:13) Sulfa (Sulfonamide Antibiotics) Allergy (Verified 03/09/18 11:13) Past Medical History - General Information source: Patient - Social History Smoking Status: Former Smoker Chew tobacco use (# tins/day): No Frequency of alcohol use: None Drug Abuse: None Lives with: Family Family History: Reviewed & Not Pertinent Patient has suicidal ideation: No Patient has homicidal ideation: No - Past Medical History Cardiac Medical History: Reports: Hx Atrial Fibrillation, Hx Hypercholesterolemia, Hx Hypertension Denies: Hx Coronary Artery Disease, Hx Heart Attack Pulmonary Medical History: Reports: Hx Asthma - MILD, Hx COPD, Hx Pneumonia - RECENTLY ON 02/04/17 Denies: Hx Bronchitis Neurological Medical History: Reports: Hx Migraine. Denies: Hx Cerebrovascular Accident, Hx Seizures Endocrine Medical History: Reports: Hx Diabetes Mellitus Type 1 Renal/ Medical History: Denies: Hx Peritoneal Dialysis GI Medical History: Reports: Hx Gastroesophageal Reflux Disease Musculoskeletal Medical History: Reports Hx Arthritis - GENERALIZED Psychiatric Medical History: Reports: Hx Anxiety Past Surgical History: Reports: Hx Cholecystectomy - Immunizations Hx Diphtheria, Pertussis, Tetanus Vaccination: - UNKNOWN Hx Pneumococcal Vaccination: 02/10/17 Review of Systems - Review of Systems Constitutional: No symptoms reported EENT: No symptoms reported Cardiovascular: No symptoms reported Respiratory: No symptoms reported Gastrointestinal: No symptoms reported Genitourinary: No symptoms reported Female Genitourinary: No symptoms reported Musculoskeletal: No symptoms reported Skin: No symptoms reported Hematologic/Lymphatic: No symptoms reported Neurological/Psychological: See HPI Physical Exam - Vital signs Vitals: Temp Pulse Resp BP Pulse Ox 97.9 F 84 18 158/57 H 96 04/29/18 20:32 04/29/18 20:32 04/29/18 20:32 04/29/18 20:32 04/29/18 20:32 - Notes Notes: GENERAL: Alert, interacts well. No acute distress. Smiling and well-appearing. HEAD: Normocephalic, atraumatic. EYES: Pupils equal, round, and reactive to light. Extraocular movements intact. ENT: Oral mucosa moist, tongue midline. Oropharynx unremarkable. Airway patent. Nares patent, no nasal septal hematoma, TM's intact. NECK: Full range of motion. Supple. Trachea midline. LUNGS: Clear to auscultation bilaterally, no wheezes, rales, or rhonchi. No respiratory distress. HEART: Regular rate and rhythm. No murmur ABDOMEN: Soft, non-tender. Non-distended. Bowel sounds present in all 4 quadrants. GENITOURINARY: Deferred EXTREMITIES: Moves all 4 extremities spontaneously. No edema, normal radial and dorsalis pedis pulses bilaterally. No cyanosis. BACK: no cervical, thoracic, lumbar midline tenderness. No saddle anesthesia, normal distal neurovascular exam. NEUROLOGICAL: Alert and oriented x3. Normal speech. [cranial nerves II through XII grossly intact]. PSYCH: Normal affect, normal mood. SKIN: Warm, dry, normal turgor. No rashes or lesions noted. Course - Re-evaluation Re-evalutation: Patient has a normal neurological exam. She states she still feels like her vision is somewhat blurred but she states that this is been going on intermit tently and she believes it is from her glasses. I do not appreciate any visual deficit on her evaluation. She does not currently have a headache, she has been having them intermittently today however. She states she is also worried about her kidney functioning. Based on her evaluation and nonspecific symptoms I have a low suspicion of intracranial hemorrhage or mass, however because of her elevated blood pressure, advanced age, and intermittent symptoms of blurry vision and headache earlier decision was made to proceed with CAT scan of the head. This was negative for acute findings. Chemistry was also performed and this was unremarkable including unremarkable kidney functioning tests. On reevaluation patient details were discussed, patient is very happy with his results, asking to leave. No current complaints. Patient has very close follow-up already arranged. Discussed return precautions in detail with patient and . They state understanding and agreement. Stable at time of discharge. - Vital Signs Vital signs: Temp Pulse Resp BP Pulse Ox 97.9 F 84 18 156/79 H 95 04/29/18 20:32 04/29/18 20:32 04/29/18 20:32 04/30/18 00:31 04/30/18 00:31 - Laboratory Result Diagrams: 04/29/18 23:48 Laboratory results interpreted by me: 04/29/18 23:48 Est GFR ( Amer) 59 L Est GFR (Non-Af Amer) 49 L Discharge - Discharge Clinical Impression: Elevated blood pressure reading, Essential hypertension Condition: Stable Disposition: HOME, SELF-CARE Additional Instructions: Your CAT scan of the head and your laboratory workup did not show any concerning findings. Follow-up closely with Dr. Baez for additional management of your blood pressure, continue the new dose of your blood pressure medication. Return if you worsen including severe headache, chest pain, passing out, inability to urinate, or any other concerning symptoms. Referrals: GEM BAEZ MD [Primary Care Provider] - Follow up in 3-5 days
--- NOTE | 2018-04-29 23:50 | RADIOLOGY REPORT (SQ) ---
EXAM DESCRIPTION: CT HEAD WITHOUT IV CONTRAST COMPLETED DATE/TME: 04/29/2018 22:04 CLINICAL HISTORY: 68 years, Female, hypertension, headache, blurred vision COMPARISON: None. TECHNIQUE: 74 Images stored on PACS. All CT scanners at this facility use dose modulation, iterative reconstruction, and/or weight based dosing when appropriate to reduce radiation dose to as low as reasonably achievable (ALARA). [facility]: Dose Right [facility]: CareDose [facility]: Dose Right [facility]: Teradose 4D [facility]: [employer] LIMITATIONS: None. FINDINGS: The globes are intact. The paranasal sinuses and mastoid air cells are unremarkable. No displaced or depressed skull fracture. No intra or extra-axial hemorrhage. CT is limited for evaluation of acute infarct. No CT evidence for large or territorial acute infarct. No mass or midline shift IMPRESSION: Negative exam TECHNICAL DOCUMENTATION: Quality ID # 436: Final reports with documentation of one or more dose reduction techniques (e.g., Automated exposure control, adjustment of the mA and/or kV according to patient size, use of iterative reconstruction technique) copyright 2011 [employer]- All Rights Reserved
[2018-04-30 00:12] LABS: ANION GAP 10 (5-19); BLOOD UREA NITROGEN 17 mg/dL (7-20); CARBON DIOXIDE 28 mmol/L (22-30); CHLORIDE 102 mmol/L (98-107); GLUCOSE 100 mg/dL (75-110); POTASSIUM 4.3 mmol/L (3.6-5.0); SODIUM 140.2 mmol/L (137-145)
[2018-04-30 00:44] VITALS: BP 156/79
== END 2018-04-30 00:59 | disposition home or self-care (01) ==
LOC: ER 20:19
DX: I10 Essential (primary) hypertension (principal); R51 Headache; J44.9 Chronic obstructive pulmonary disease, unspecified; E10.9 Type 1 diabetes mellitus without complications; F41.9 Anxiety disorder, unspecified; Z79.899 Other long term (current) drug therapy; Z88.8 Allergy status to other drugs, medicaments and biological substances; Z88.2 Allergy status to sulfonamides; Z88.1 Allergy status to other antibiotic agents; Z88.6 Allergy status to analgesic agent; Z87.891 Personal history of nicotine dependence
CPT/HCPCS: 36415; 70450; 80048; 99284

== ENCOUNTER → 2018-07-01 | Outpatient (CLI) | payer MEDICARE ==
--- NOTE | 2018-07-01 15:35 | WOMENS IMAGING REPORT ---
EXAM DESCRIPTION: 3D SCREENING MAMMO BILAT COMPLETED DATE/TIME: 07/01/2018 10:54 am REASON FOR STUDY: Z12.31 ROUTINE 3D BILATERAL SCREENING Z12.31 ENCNTR SCREEN MAMMOGRAM FOR MALIGNAN T NEOPLASM OF CARIE COMPARISON: [id number] EXAM PARAMETERS: Views: Standard craniocaudal and mediolateral oblique views of each breast recorded using digital acquisition and breast tomosynthesis. Read with the assistance of CAD. .[facility] - [employer] Version 9.2 LIMITATIONS: None. FINDINGS: No suspicious masses, suspicious calcifications or architectural distortion. No areas of c oncern. IMPRESSION: Assessment: Negative MAMMOGRAM. BIRADS 1. BREAST DENSITY: b. There are scattered areas of fibroglandular density. BIRAD: 1 NEGATIVE RECOMMENDATION: ROUTINE SCREENING COMMENT: The patient has been notified of the results by letter per MQSA requirements. Additional no tification policies are in place for contacting patient with suspicious or incomplete findings. Quality ID #225: The [employer] recommends an annual screening mammogram for women aged 40 years or over. This facility utilizes a reminder system to ensure that all patients receive reminder letters, and/or direct phone calls for appointments. This includes reminders for routine scr eening mammograms, diagnostic mammograms, or other Breast Imaging Interventions when appropriate. Th is patient will be placed in the appropriate reminder system. TECHNICAL DOCUMENTATION: FINDING NUMBER: (1) ASSESSMENT: (1) JOB ID: [id number] [employer]- All Rights Reserved Reading location - IP/workstation name: [email or web address]
== END ==
LOC: WI 10:14
PROVIDERS: ATTEND Family Medicine
DX: Z12.31 Encounter for screening mammogram for malignant neoplasm of breast (principal)
CPT/HCPCS: 77063; 77067

== ENCOUNTER → 2018-08-14 | Outpatient (CLI) | payer MEDICARE ==
--- NOTE | 2018-08-14 10:04 | WOMENS IMAGING REPORT ---
EXAM DESCRIPTION: U/S THYROID/ST TIS HEAD NECK COMPLETED DATE/TIME: 08/14/2018 9:42 am REASON FOR STUDY: R22.9 LOCALIZED SWELLING,MASS AND LUMP,UNSPECIFIED, R49.0 DYSPHONIA R49.0 DYSPHON IA R22.9 LOCALIZED SWELLING, MASS AND LUMP, UNSPECIFIED COMPARISON: None. TECHNIQUE: Dynamic and static scott-scale images acquired of the palpable abnormality low anterior mi dline neck. Selected additional color/power Doppler images recorded. All images stored to PACS. LIMITATIONS: None. FINDINGS: Patient indicates a palpable abnormality in the low anterior midline neck. Ultrasound ove r the sternal notch region in the area of palpable abnormality was performed. No discrete cystic or solid lesions are identified. Palpable abnormality correlates with the left st ernoclavicular joint IMPRESSION: Palpable abnormality in the lower anterior midline neck correlates with the left sternoc lavicular joint. TECHNICAL DOCUMENTATION: JOB ID: [id number] [employer]- All Rights Reserved Reading location - IP/workstation name: [email or web address]
== END ==
LOC: WI 09:15
PROVIDERS: ATTEND Family Medicine
DX: R49.0 Dysphonia (principal); R22.9 Localized swelling, mass and lump, unspecified
CPT/HCPCS: 76536

== ENCOUNTER → 2019-07-06 | Outpatient (CLI) | payer MEDICARE ==
--- NOTE | 2019-07-06 15:36 | WOMENS IMAGING REPORT ---
EXAM DESCRIPTION: 3D SCREENING MAMMO BILAT IMAGES COMPLETED DATE/TIME: 07/06/2019 2:27 pm REASON FOR STUDY: Z12.31 SCREENING MAMMO Z12.31 ENCNTR SCREEN MAMMOGRAM FOR MALIGNANT NEOPLASM OF B RE COMPARISON: 2015 to 2018 EXAM PARAMETERS: Views: Standard craniocaudal and mediolateral oblique views of each breast recorded using digital acquisition and breast tomosynthesis. Read with the assistance of CAD. .[facility] - [employer] Verification Representative Version 9.2 LIMITATIONS: None. FINDINGS: No suspicious masses, suspicious calcifications or architectural distortion. No areas of c oncern. IMPRESSION: NEGATIVE MAMMOGRAM. BIRADS 1. BREAST DENSITY: b. There are scattered areas of fibroglandular density. BIRAD: ASSESSMENT: 1 NEGATIVE RECOMMENDATION: ROUTINE SCREENING COMMENT: The patient has been notified of the results by letter per MQSA requirements. Additional no tification policies are in place for contacting patient with suspicious or incomplete findings. Quality ID #225: The [employer] recommends an annual screening mammogram for women aged 40 years or over. This facility utilizes a reminder system to ensure that all patients receive reminder letters, and/or direct phone calls for appointments. This includes reminders for routine scr eening mammograms, diagnostic mammograms, or other Breast Imaging Interventions when appropriate. Th is patient will be placed in the appropriate reminder system. TECHNICAL DOCUMENTATION: FINDING NUMBER: (1) ASSESSMENT: (1) JOB ID: [id number] [employer]- All Rights Reserved Reading location - IP/workstation name: [email or web address]
== END ==
LOC: WI 10:15
PROVIDERS: ATTEND Family Medicine
DX: Z12.31 Encounter for screening mammogram for malignant neoplasm of breast (principal)
CPT/HCPCS: 77063; 77067